=== PATIENT | female | born 1965 | race African-American/Black ===

== ENCOUNTER 2016-05-28 20:05 | Emergency (ER) | payer OTHER ==
[2016-05-28] MEDS ORDERED: SODIUM CHLORIDE 1,000 ML IV STA (20:08)
--- NOTE | 2016-05-28 20:08 | PDOC ---
History of Present Illness - History of Present Illness Initial Comments: 05/28/16 20:08 Patient is a 50 year old female with no significant medical hx who is presenting to the ED complaining of intermittent weakness. One week ago the patient had an episode of sudden weakness that relieved after taking some Tylenol. Last night her weakness returned with fever, chills, nausea and two episodes of vomiting. The patient also complains of abdominal discomfort. Patient works nights seven days a week and gets a day off once in a while. She often gets little sleep (about 3 hours). The patient recently had bariatric surgery and has been following the diet. She reports that she had low potassium levels after the surgery and has been taking potassium since. Denies increased urinary frequency, shortness of breath, or dizziness. PCP: Joe Perry MD <Sofy Yen - Last Filed: 05/28/16 20:38> <Gen Scott - Last Filed: 05/28/16 21:15> - General Chief Complaint: Weakness Stated Complaint: WEAKNESS Time Seen by Provider: 05/28/16 20:07 Past History <Sofy Yen - Last Filed: 05/28/16 20:38> <Gen Scott - Last Filed: 05/28/16 21:15> - Past Medical History Allergies/Adverse Reactions: Allergies Allergy/AdvReac Type Severity Reaction Status Date / Time No Known Allergies Allergy Verified 05/28/16 20:07 Home Medications: Ambulatory Orders Carvedilol [Coreg] 12.5 mg PO BID 05/28/16 Cephalexin [Keflex] 250 mg PO QID 3 Days 05/28/16 Simvastatin [Zocor -] 20 mg PO HS 05/28/16 Review of Systems - Review of Systems Comments:: 05/28/16 20:14 CONSTITUTIONAL: Present: fever, chills, generalized weakness Absent: diaphoresis, malaise, loss of appetite CARDIOVASCULAR: Absent: chest pain, syncope, palpitations, irregular heart rate, lightheadedness , peripheral edema RESPIRATORY: Absent: cough, shortness of breath, dyspnea with exertion, orthopnea, wheezing, stridor, hemoptysis GASTROINTESTINAL: Present: abdominal discomfort, nausea, vomiting Absent: abdominal distension, diarrhea, constipation, melena, hematochezia GENITOURINARY: Absent: dysuria, frequency, urgency, hesitancy, hematuria, flank pain, genital pain NEUROLOGIC: Absent: headache, focal weakness or paresthesia, dizziness, unsteady gait, seizure, mental status changes, bladder or bowel incontinence. <Sofy Yen - Last Filed: 05/28/16 20:38> - Review of Systems Able to Perform ROS?: Yes Is the patient limited Egyptian proficient: No Constitutional: Yes: Symptoms Reported, See HPI HEENTM: No: Symptoms Reported Respiratory: No: Symptoms reported Cardiac (ROS): No: Symptoms Reported ABD/GI: Yes: Symptoms Reported, See HPI : No: Symptoms Reported Musculoskeletal: Yes: Symptoms Reported, See HPI, Muscle Weakness Neurological: No: Symptoms reported All Other Systems: Reviewed and Negative <Gen Scott - Last Filed: 05/28/16 21:15> *Physical Exam - Physical Exam Comments: 05/28/16 20:15 Constitutional: The patient is in no apparent distress, speaking in full sentences, hemodynamically stable, non-orthostatic HEENT: Moist mucous membranes Cardiac/Respiratory: Lungs and heart are normal. Skin: Skin turgor is normal Neuro: Neurologically intact <Sofy Yen - Last Filed: 05/28/16 20:38> ED Treatment Course - LABORATORY CBC & Chemistry Diagram: 05/28/16 20:20 <Sofy Yen - Last Filed: 05/28/16 20:38> - LABORATORY CBC & Chemistry Diagram: 05/28/16 20:20 <Gen Scott - Last Filed: 05/28/16 21:15> *DC/Admit/Observation/Transfer - Attestations Scribe Attestion: 05/28/16 20:18 Documentation prepared by Sofy Yen, acting as senior medical technologist for Gne Scott MD. <Sofy Yen - Last Filed: 05/28/16 20:38> <Gen Scott - Last Filed: 05/28/16 21:15> Diagnosis at time of Disposition: Dehydration, Hypokalemia UTI (urinary tract infection) Qualifiers: Urinary tract infection type: acute cystitis Hematuria presence: without hematuria Qualified Code(s): N30.00 - Acute cystitis without hematuria - Discharge Dispostion Condition at time of disposition: Good - Prescriptions Prescriptions: Cephalexin [Keflex] 250 mg PO QID 3 Days - Patient Instructions Additional Instructions: CONTINUE MEDICATIONS PRESCRIBED REST PLENTY OF FLUIDS (WATER/PEDIALYTE) CALL YOUR DOCTOR ON MONDAY TAKE ANTIBIOTICS PRESCRIBED - Post Discharge Activity Work/School Note: Back to Work
[2016-05-28 20:31] VITALS: BP 113/67; PULSE 80; TEMP 97.7; BMI 29.8
[2016-05-28 20:43] LABS: PH,URINE 6.5 (4.5-8); URINE BILIRUBIN Negative (NEGATIVE); URINE BLOOD Negative (NEGATIVE); URINE GLUCOSE (UA) Negative (NEGATIVE); URINE KETONE Negative (NEGATIVE); URINE LEUK ESTERASE 1+ (NEGATIVE); URINE NITRITE Negative (NEGATIVE); URINE PROTEIN Negative (NEGATIVE); URINE UROBILINOGEN 2.0 E.U/dl (0.2-1.0)
[2016-05-28 20:44] LABS: CALCIUM 8.8 mg/dl (8.4-10.2); CREATININE 0.7 mg/dl (0.6-1.3)
[2016-05-28 20:44] LABS: URINE COLOR YELLOW
[2016-05-28 20:49] LABS: URINE APPEARANCE HAZY
[2016-05-28 20:50] LABS: URINE BACTERIA FEW /hpf (NEGATIVE)
[2016-05-28] MEDS ORDERED: CEPHALEXIN MONOHYDRATE 500 MG CAPSULE (UD) PO ONE (21:07)
[2016-05-28] MEDS ORDERED: POTASSIUM CHLORIDE TABS 20 MEQ TABLET.ER (FP) PO ONE ×2 (21:07→21:12)
[2016-05-28] MEDS ORDERED: CEPHALEXIN MONOHYDRATE 500 MG CAPSULE (UD) ONE (21:17)
== END 2016-05-28 21:53 | disposition home or self-care (01) ==
LOC: MERGE 20:05 → FER 20:05
PROC: 3E0337Z Introduction of Electrolytic and Water Balance Substance into Peripheral Vein, Percutaneous Approach (ICD-10-PCS; principal; 2016-05-28)
DX: E87.6 Hypokalemia (principal); E86.0 Dehydration
CPT/HCPCS: 36415; 80048; 81003; 81015; 99283-25

== ENCOUNTER 2016-06-22 05:21 | Day surgery (SDC) | payer OTHER ==
[2016-06-13 10:28] VITALS: BMI 28.6
[2016-06-22] MEDS ORDERED: DESFLURANE GAS 240 ML BOTTLE IH ONE (07:10)
[2016-06-22] MEDS ORDERED: DEXAMETHASONE SOD PHOSPHATE 4 MG/1 ML VIAL ONE (07:30)
[2016-06-22] MEDS ORDERED: SODIUM CHLORIDE 0.9% P/F 10 ML VIAL IJ ONE (07:30)
[2016-06-22] MEDS ORDERED: KETOROLAC TROMETHAMINE 30 MG/1 ML VIAL ONE (07:30)
[2016-06-22] MEDS ORDERED: ePHEDrine SULFATE 50 MG/1 ML AMPULE ONE (07:30)
[2016-06-22] MEDS ORDERED: ceFAZolin SODIUM 1 GM VIAL ONE (07:30)
[2016-06-22] MEDS ORDERED: MIDAZOLAM HCL 2 MG/2 ML SINGLE DOSE VIAL ONE (07:31)
[2016-06-22] MEDS ORDERED: PROPOFOL 20 ML ONE ×2 (07:31)
[2016-06-22] MEDS ORDERED: BUPIVACAINE HCL/PF 0.5% (5MG/ML) 10 ML VIAL ONE (07:39)
[2016-06-22] MEDS ORDERED: LIDOCAINE HCL 1%, 10 MG/ML (20ML VIAL) ONE (07:39)
[2016-06-22] MEDS ORDERED: LIDOCAINE HCL 1%, 10 MG/ML (20ML VIAL) IJ ONE ×2 (07:50)
[2016-06-22] MEDS ORDERED: BUPIVACAINE HCL/PF 0.5% (5MG/ML) 10 ML VIAL IJ ONE ×2 (07:51)
--- NOTE | 2016-06-22 08:35 | HP ---
Satellite H - Chief Complaint Chief Complaint: right hand pain/numbness - Past Medical History Allergies/Adverse Reactions: Allergies Allergy/AdvReac Type Severity Reaction Status Date / Time banana Allergy Severe RASH,THROAT Verified 06/22/16 07:06 CLOSING chloroquine Allergy "TURN RED" Verified 06/22/16 07:06 ...LMP: 06/05/01 ...LMP Comment: POSTMENOPAUSAL X 15 YEARS - Current Medications Current Medications: Medication Instructions Recorded Losartan/Hydrochlorothiazide 1 each PO DAILY 02/22/13 [Losartan-Hctz 100-25 mg Tablet] Simvastatin [Zocor -] 10 mg PO HS 02/22/13 Potassium Chloride [K-Dur -] 20 meq PO DAILY 09/23/15 Carvedilol [Coreg] 12.5 mg PO BID 05/28/16 Omeprazole 10 mg PO DAILY 06/13/16 Hydrocodone/Acetaminophen [Collins 1 - 2 each PO Q6H #50 tablet MDD 8 06/22/16 5-325 Tablet] Satellite Physical Exam - Physical Examination Vital Signs: Vital Signs Period Temp Pulse Resp BP Sys/Harden Pulse Ox Last 24 Hr 97.9 F 77 20 141/90 100 General Appearance: Well Nourished, Well Developed, Alert & Oriented x3 ENT: Clear Lung: Normal air movement Heart: Regular rate & rhythm Extremities: Other (right hand- + tinels, + phalens EMG + cts) Neurological: Intact, Alert, Oriented Satellite Impression/Plan - Impression/Plan Impression: right cts Operative Procedure: right ctr Date to be Performed: 06/22/16
--- NOTE | 2016-06-22 09:01 | OP ---
Operative Note - Note: Operative Date: 06/22/16 Pre-Operative Diagnosis: right CTS Operation: right CTR, tenosynovectomy Post-Operative Diagnosis: Same as Pre-op Surgeon: Fortino Martínez Anesthesiologist/[facility] [employer]: Akil Clark Jr. Anesthesia: General, Local Specimens Removed: tenosynovium Estimated Blood Loss (mls): 0 Blood Volume Replaced (mls): 0 Fluid Volume Replaced (mls): 500 Operative Report Dictated: Yes
[2016-06-22] MEDS ORDERED: oxyCODONE HCL 5 MG TABLET PO PRN (09:04)
[2016-06-22] MEDS ORDERED: ONDANSETRON 4 MG/2 ML VIAL IVPUSH PRN (09:04)
[2016-06-22] MEDS ORDERED: LACTATED RINGERS SOLUTION 1,000 ML IV SCH (09:15)
--- NOTE | 2016-06-22 09:21 | SPEC ---
DATE OF OPERATION: PREOPERATIVE DIAGNOSIS: Right carpal tunnel syndrome. POSTOPERATIVE DIAGNOSIS: Right carpal tunnel syndrome. PROCEDURE: Right carpal tunnel release and tenosynovectomy. SURGEON: Fortino Martínez MD METAL RIVET MACHINE OPERATOR: None. ANESTHESIOLOGIST: Akil Clark CRNA BLOOD LOSS: None. BLOOD GIVEN: None. FLUID REPLACEMENT: 500 mL. DRAINS: None. COMPLICATIONS: None. SPECIMEN: Tenosynovium, right wrist. This patient is a 50-year-old female with a preoperative diagnosis of right carpal tunnel syndrome. After understanding the potential risks, complications, alternatives, and benefits of surgical versus nonsurgical treatment, the patient elected to undergo this procedure. She understands she may not get complete relief of her symptoms, including continuation of her numbness. DESCRIPTION OF PROCEDURE: The patient was brought to the operating room, peripheral IV placed and intravenous sedation was given. One gram of intravenous Ancef was given. MAC anesthesia was induced. A tourniquet was applied to the right upper arm and the right upper extremity was prepped and draped in sterile fashion. The entire case was done under 3.8 loupe magnification. A marking pen was utilized to yasmin out a longitudinal incision in an already existing skin crease. Twenty mL of 0.5% Marcaine mixed with 1% Lidocaine was injected in and around the surgical incision. The right upper extremity was elevated, exsanguinated with an Esmarch bandage and the tourniquet inflated to 250 mmHg. A No. 15 scalpel blade was utilized to cut down through the skin. Subcutaneous hemostasis was achieved with the bipolar cautery. Dissection was done through the superficial palmar fascia. Self-retaining retractors were placed into the wound. Under direct visualization, the transverse carpal ligament was transected with a No. 15 scalpel blade, exposing the median nerve and the contents of the carpal tunnel. The distal and proximal extents of the release were completed with a Littler scissor and checked with irrigation and my small finger. They were seen to be complete. Limited dissection was done on the radial side of the median nerve and more extensive dissection was done on the ulnar side of the median nerve. The patients nerve was seen to be quite compressed by epineurium and therefore a limited epineurotomy was performed. A Ragnell retractor was used to gently retract the median nerve in a radial direction. The patient had a lot of tenosynovitis and therefore a tenosynovectomy was performed off all 9 flexor tendons. This was passed off the field as tenosynovium right wrist. The floor of the carpal tunnel was checked. There were no abnormal masses or ganglion cysts. The area was copiously irrigated and washed out and closure begun. Undyed 4-0 Vicryl was used to close the deep dermal layer. Final skin reapproximation was done with horizontal mattress 4-0 nylon sutures. The area was then washed and dried, covered with Xeroform, 4x4s, fluffs between the fingers, Webril and a 4-inch plaster roll was utilized to make a volar splint, which was then wrapped with Ladi and Coban. The tourniquet was taken down after a total tourniquet time of 15 minutes. There were no complications during the case. The patient tolerated the procedure well and was brought to the ambulatory recovery room in stable condition. Becca [id number]
[2016-06-22 09:50] VITALS: TEMP 97.8
[2016-06-22 12:27] VITALS: BP 132/83; PULSE 68
--- NOTE | 2016-06-23 17:38 | PATH ---
Surgical Pathology Report Patient Name: EDITH MAO [facility]. Rec. #: [id number] /Age/Gender: 1965 (Age: 50) / F Account: [id number] Location: [facility] SURGICAL Taken: 06/22/2016 Received: 06/22/2016 Reported: 06/23/2016 Physicians: Fortino Martínez M.D. Specimen(s) Received TENOSYNOVIUM TISSUE RIGHT WRIST Clinical History Right carpal tunnel syndrome Final Diagnosis SOFT TISSUE, RIGHT WRIST, TENOSYNOVIUM, CARPAL TUNNEL RELEASE: BENIGN TENOSYNOVIAL FIBROCONNECTIVE TISSUE WITH MYXOID DEGENERATION. Electronically Signed Mesfin Reyes M.D. Gross Description Received in formalin, labeled "tenosynovium right wrist" is a 2.2 x 1.5 x 0.3 cm aggregate of multiple leonardo-yellow, irregular portions of soft tissue, consistent with tenosynovium. The specimen is submitted in toto in one cassette. 06/22/201606/22/2016
== END 2016-06-22 11:45 | disposition home or self-care (01) ==
LOC: JASU-SURG 05:21 → MERGE 11:00 → JASU-SURG 11:45
PROVIDERS: ATTEND Orthopaedic Surgery
PROC: 0LB50ZZ Excision of Right Lower Arm and Wrist Tendon, Open Approach (ICD-10-PCS; 2016-06-22)
PROC: 01N50ZZ Release Median Nerve, Open Approach (ICD-10-PCS; principal; 2016-06-22 08:00)
DX: G56.01 Carpal tunnel syndrome, right upper limb (principal); M65.831 Other synovitis and tenosynovitis, right forearm
CPT/HCPCS: 88304-TC; 94760

== ENCOUNTER 2017-06-15 09:11 | Emergency (ER) | payer OTHER ==
[2017-06-15 09:24] VITALS: BP 122/76; PULSE 92; TEMP 98.5; BMI 29.1
[2017-06-15] MEDS ORDERED: KETOROLAC TROMETHAMINE 30 MG/1 ML VIAL ONE (09:50)
[2017-06-15] MEDS ORDERED: KETOROLAC TROMETHAMINE 30 MG/1 ML VIAL IVPUSH ONE (09:50)
[2017-06-15] MEDS ORDERED: SODIUM CHLORIDE 1,000 ML IV STA (09:50)
[2017-06-15 10:47] LABS: HEMOGLOBIN 12.6 GM/dl (10.7-15.3)
[2017-06-15 11:06] LABS: MCH 32.2 pg (25.7-33.7); MCHC 34.1 g/dl (32.0-36.0); MEAN CELL VOLUME 94.2 fl (80-96); MEAN PLT VOLUME 9.4 fl (7.5-11.1); PLATELET COUNT 201 K/MM3 (134-434); RBC 3.93 M/mm3 (3.60-5.2); RDW 12.8 % (11.6-15.6); WHITE BLOOD COUNT 2.8 K/mm3 (4.0-10.8)
[2017-06-15 11:07] LABS: ALBUMIN 3.3 g/dl (3.5-5.0); ALK PHOS 70 U/L (32-92); ANION GAP 6 (8-16); BILIRUBIN,TOTAL 0.5 mg/dl (0.2-1.0); BLOOD UREA NITROGEN 16 mg/dl (7-18); CALCIUM 8.7 mg/dl (8.4-10.2); CHLORIDE 98 mmol/L (98-107); CO2 32 mmol/L (22-28); CREATININE 0.9 mg/dl (0.6-1.3); GLUCOSE,RANDOM 113 mg/dl (74-106); POTASSIUM 3.1 mmol/L (3.5-5.1); SGOT/AST 28 U/L (10-42); SGPT/ALT 23 U/L (10-40); SODIUM 136 mmol/L (136-145); TOT PROT 6.4 g/dl (6.4-8.3)
[2017-06-15] MEDS ORDERED: POTASSIUM CHLORIDE TABS 20 MEQ TABLET.ER (FP) PO ONE ×2 (11:26→11:29)
[2017-06-15 12:02] LABS: PLATELET ESTIMATE ADEQUATE
--- NOTE | 2017-06-15 12:29 | PDOC ---
History of Present Illness - General Chief Complaint: Respiratory Stated Complaint: BODY ACHES Time Seen by Provider: 06/15/17 09:17 History Source: Patient Exam Limitations: No Limitations - History of Present Illness Initial Comments: 06/15/17 12:20 CHIEF COMPLAINT: 51-year-old female presents with feeling feverish with body aches for 2 weeks, now with worsening myalgias. HISTORY OF PRESENT ILLNESS: Patient has been ill for about 2 weeks with generalized aches, she had a cough initially which then resolved. She has been in contact with multiple people with similar illness. She thought she was getting better but yesterday she developed severe myalgias throughout her body. She denies any headache, sore throat, cough, dysuria, or rash. She just feels achy all over, worse in the shoulders and the thighs. REVIEW OF SYSTEMS: GENERAL/CONSTITUTIONAL: Positive subjective fever, positive chills. Positive diffuse body aches. Positive decreased appetite. HEAD, EYES, EARS, NOSE AND THROAT: No change in vision. No ear pain or discharge. No sore throat. CARDIOVASCULAR: No chest pain or shortness of breath. RESPIRATORY: No cough, wheezing, or hemoptysis. GASTROINTESTINAL: No nausea, vomiting, diarrhea or constipation. No rectal bleeding. GENITOURINARY: No dysuria, frequency, or change in urination. MUSCULOSKELETAL: Positive diffuse muscle aches. SKIN AND BREASTS: No rash or easy bruising. NEUROLOGIC: No headache, vertigo, loss of consciousness, or loss of sensation. PSYCHIATRIC: No depression or anxiety. ENDOCRINE: Positive increased thirst. No abnormal weight change. HEMATOLOGIC/LYMPHATIC: No anemia, easy bleeding, or history of blood clots. ALLERGIC/IMMUNOLOGIC: No hives or skin allergy. No latex allergy. Past History - Past Medical History Allergies/Adverse Reactions: Allergies Allergy/AdvReac Type Severity Reaction Status Date / Time banana Allergy Severe RASH,THROAT Verified 06/15/17 10:09 CLOSING chloroquine Allergy "TURN RED" Verified 06/15/17 10:09 CHLORAQUIN Allergy Uncoded 06/15/17 10:09 Home Medications: Ambulatory Orders Losartan/Hydrochlorothiazide [Losartan-Hctz 100-25 mg Tablet] 1 each PO DAILY Simvastatin [Zocor -] 10 mg PO HS 02/22/13 Potassium Chloride [K-Dur -] 20 meq PO DAILY 09/23/15 Carvedilol [Coreg] 12.5 mg PO BID 05/28/16 Omeprazole 10 mg PO DAILY 06/13/16 Nabumetone 500 mg PO BID PRN #14 tablet 06/15/17 Anemia: No Asthma: No Cancer: No Cardiac Disorders: No CVA: No COPD: No CHF: No Dementia: No Diabetes: Yes (DIET CONTROLLED) GI Disorders: No Disorders: No HTN: Yes Hypercholesterolemia: Yes Liver Disease: No Seizures: No Thyroid Disease: No - Surgical History Abdominal Surgery: Yes (gastric sleeve) Gastric Stapling: Yes (GASTRIC SLEEVE) GI Surgery: Yes Orthopedic Surgery: Yes (LEFT CARPAL TUNNEL 2016) - Immunization History Immunization Up to Date: No - Suicide/Smoking/Psychosocial Hx Smoking Status: No Smoking History: Never smoked Have you smoked in the past 12 months: No Number of Cigarettes Smoked Daily: 0 Hx Alcohol Use: No Drug/Substance Use Hx: No Substance Use Type: None Hx Substance Use Treatment: No *Physical Exam - Vital Signs Last Vital Signs Temp Pulse Resp BP Pulse Ox 98.5 F 92 H 15 122/76 97 06/15/17 09:14 06/15/17 09:14 06/15/17 09:14 06/15/17 09:14 06/15/17 09:14 - Physical Exam Comments: 06/15/17 12:29 GENERAL: The patient is awake, alert, and fully oriented, in no acute distress. She has body aches when changing position on the stretcher, discomfort with movement. HEAD: Normal with no signs of trauma. EYES: Pupils equal, round and reactive to light, extraocular movements intact, sclera anicteric, conjunctiva clear. ENT: Ears normal, nares patent, oropharynx clear without exudates. Moist mucous membranes. NECK: Normal range of motion, supple without lymphadenopathy, JVD, or masses. LUNGS: Breath sounds equal, clear to auscultation bilaterally. No wheezes, and no crackles. HEART: Regular rate and rhythm, normal S1 and S2 without murmur, rub or gallop. ABDOMEN: Soft, nontender, normoactive bowel sounds. No guarding, no rebound. No masses. EXTREMITIES: Normal range of motion, no edema. No clubbing or cyanosis. No cords, erythema, or tenderness. NEUROLOGICAL: Cranial nerves II through XII grossly intact. Normal speech, normal gait. PSYCH: Normal mood, normal affect. SKIN: Warm, Dry, normal turgor, no rashes or lesions noted. ED Treatment Course - LABORATORY CBC & Chemistry Diagram: 06/15/17 10:00 06/15/17 10:00 - ADDITIONAL ORDERS Additional order review: Laboratory Results 06/15/17 10:00 Sodium 136 Potassium 3.1 L Chloride 98 Carbon Dioxide 32 H Anion Gap 6 L BUN 16 Creatinine 0.9 D Creat Clearance w eGFR > 60 Random Glucose 113 H Calcium 8.7 Total Bilirubin 0.5 D AST 28 ALT 23 Alkaline Phosphatase 70 D Total Protein 6.4 Albumin 3.3 L 06/15/17 10:00 RBC 3.93 MCV 94.2 MCHC 34.1 RDW 12.8 MPV 9.4 Neutrophils % No Result Required. Lymphocytes % No Result Required. - Medications Given in the ED: ED Medications Discontinued Medications Generic Name Dose Route Start Last Admin Trade Name Freq PRN Reason Stop Dose Admin Sodium Chloride 1,000 mls @ 1,000 mls/hr 06/15/17 09:50 06/15/17 10:00 Normal Saline - IV 06/15/17 10:49 1,000 mls/hr ASDIR STA Administration Ketorolac Tromethamine 30 mg 06/15/17 09:50 06/15/17 10:00 Toradol Injection - IVPUSH 06/15/17 09:51 30 mg ONCE ONE Administration Potassium Chloride 20 meq 06/15/17 11:26 06/15/17 11:30 K-Dur - PO 06/15/17 11:27 20 meq ONCE ONE Administration Medical Decision Making - Medical Decision Making 06/15/17 12:29 Patient with viral symptoms and influenza-like illness over the last 2 weeks, now worse for the last 24 hours. No focal symptoms of pneumonia, urinary tract infection, meningitis, abdominal infection or cellulitis. Primary symptom is just diffuse body aches. On examination, there are no abnormal findings other than body aches. Laboratory studies reviewed: Laboratory Results - last 24 hr 06/15/17 06/15/17 10:00 10:00 WBC 2.8 L D RBC 3.93 Hgb 12.6 Hct 37.0 MCV 94.2 MCH 32.2 MCHC 34.1 RDW 12.8 Plt Count 201 MPV 9.4 Neutrophils % No Result Required. Neutrophils % (Manual) 59.0 Band Neutrophils % 3.0 Lymphocytes % No Result Required. Lymphocytes % (Manual) 15.0 Monocytes % (Manual) 23 H* Platelet Estimate Adequate Platelet Comment Sodium 136 Potassium 3.1 L Chloride 98 Carbon Dioxide 32 H Anion Gap 6 L BUN 16 Creatinine 0.9 D Creat Clearance w eGFR > 60 Random Glucose 113 H Calcium 8.7 Total Bilirubin 0.5 D AST 28 ALT 23 Alkaline Phosphatase 70 D Total Protein 6.4 Albumin 3.3 L White blood cell count is a bit low, but she does run low in the past, previously 3-5 for her typical white blood cell count. Today is just a bit lower. Differential shows normal neutrophils. Monocytes are increased. These findings are suggestive of a viral type infection. Chemistries are unremarkable other than mild hypokalemia which has been repleted. Albumin is 3.3, consistent with prior history of gastric sleeve procedure for weight loss. Given the two-week duration, the absence of fever, the absence of cough, and the only finding of myalgias, patient will be treated with nabumetone twice daily for symptomatic relief. She is stable for discharge. *DC/Admit/Observation/Transfer Diagnosis at time of Disposition: Viral syndrome, Myalgia - Discharge Dispostion Disposition: HOME Condition at time of disposition: Stable Admit: No - Prescriptions Prescriptions: Nabumetone 500 mg PO BID PRN #14 tablet PRN Reason: aches pain or fever - Referrals Referrals: Joe Perry MD [Primary Care Provider] - - Patient Instructions Printed Discharge Instructions: DI for Viral Syndrome Additional Instructions: You were evaluated today for body aches. The likely cause is a viral infection. Take plenty of fluids and rest at home. Take nabumetone 500 mg twice a day with food to relieve the body aches and pain. Follow-up with your primary care physician. Return to the emergency department for any severe or progressive symptoms. - Post Discharge Activity Forms/Work/School Notes: Back to Work
== END 2017-06-15 12:42 | disposition home or self-care (01) ==
LOC: FER 09:11
PROC: 3E0333Z Introduction of Anti-inflammatory into Peripheral Vein, Percutaneous Approach (ICD-10-PCS; principal; 2017-06-15)
PROC: 3E0337Z Introduction of Electrolytic and Water Balance Substance into Peripheral Vein, Percutaneous Approach (ICD-10-PCS; 2017-06-15)
DX: B34.9 Viral infection, unspecified (principal); M79.1 Myalgia; I10 Essential (primary) hypertension; E78.00 Pure hypercholesterolemia, unspecified; Z98.84 Bariatric surgery status
CPT/HCPCS: 36415; 80053; 85025; 99283-25

== ENCOUNTER 2017-08-13 18:39 | Emergency (ER) | payer OTHER ==
[2017-08-13 18:51] VITALS: BP 116/80; PULSE 80; TEMP 98.3; BMI 28.3
--- NOTE | 2017-08-13 19:02 | PDOC ---
History of Present Illness - General History Source: Patient Exam Limitations: No Limitations - History of Present Illness Initial Comments: 08/13/17 19:34 The patient is a 51 year old female, with no significant past medical history, who presents to the emergency department with, a bite to the left index finger. As per patient, she was bit by a wild mouse. The patient is unaware if her tetanus is up to date. She denies any pain to the area. She denies recent fevers, chills, headache or dizziness. She denies recent nausea, vomit, diarrhea or constipation. She denies recent dysuria, frequency, urgency or hematuria. She denies recent chest pain or shortness of breath. Past surgical history: None reported. Social history: Nonsmoker. Denies EtOH use and recreational drug use. <Tino Blanchard - Last Filed: 08/13/17 19:51> <Rosales Bolden - Last Filed: 08/14/17 06:31> - General Chief Complaint: Bite Stated Complaint: PT STATES SHE WAS BITTEN BY A MOUSE ON LEFT INDEX Time Seen by Provider: 08/13/17 19:02 Past History <Tino Blanchard - Last Filed: 08/13/17 19:51> - Past Medical History Anemia: No Asthma: No Cancer: No Cardiac Disorders: No CVA: No COPD: No CHF: No Dementia: No Diabetes: Yes (DIET CONTROLLED) GI Disorders: No Disorders: No HTN: Yes Hypercholesterolemia: Yes Liver Disease: No Seizures: No Thyroid Disease: No - Surgical History Abdominal Surgery: Yes (gastric sleeve) Gastric Stapling: Yes (GASTRIC SLEEVE) GI Surgery: Yes Orthopedic Surgery: Yes (LEFT CARPAL TUNNEL 2016) - Immunization History Immunization Up to Date: No - Suicide/Smoking/Psychosocial Hx Smoking Status: No Smoking History: Never smoked Have you smoked in the past 12 months: No Number of Cigarettes Smoked Daily: 0 Information on smoking cessation initiated: No Hx Alcohol Use: No Drug/Substance Use Hx: No Substance Use Type: None Hx Substance Use Treatment: No <Rosales Bolden - Last Filed: 08/14/17 06:31> - Past Medical History Allergies/Adverse Reactions: Allergies Allergy/AdvReac Type Severity Reaction Status Date / Time banana Allergy Severe RASH,THROAT Verified 08/13/17 18:40 CLOSING chloroquine Allergy "TURN RED" Verified 08/13/17 18:40 Home Medications: Ambulatory Orders Losartan/Hydrochlorothiazide [Losartan-Hctz 100-25 mg Tablet] 1 each PO DAILY Simvastatin [Zocor -] 10 mg PO DAILY 02/22/13 Potassium Chloride [K-Dur -] 20 meq PO DAILY 09/23/15 Carvedilol [Coreg] 12.5 mg PO BID 05/28/16 Omeprazole 10 mg PO DAILY 06/13/16 Nabumetone 500 mg PO BID PRN #14 tablet 06/15/17 Review of Systems - Review of Systems Able to Perform ROS?: Yes Comments:: 08/13/17 19:34 GENERAL/CONSTITUTIONAL: No fever or chills. No weakness. HEAD, EYES, EARS, NOSE AND THROAT: No change in vision. No ear pain or discharge. No sore throat. CARDIOVASCULAR: No chest pain or shortness of breath. RESPIRATORY: No cough, wheezing, or hemoptysis. GASTROINTESTINAL: No nausea, vomiting, diarrhea or constipation. GENITOURINARY: No dysuria, frequency, or change in urination. MUSCULOSKELETAL: No joint or muscle swelling or pain. No neck or back pain. SKIN: +Bite to left index finger. No rash NEUROLOGIC: No headache, vertigo, loss of consciousness, or change in strength/ sensation. ENDOCRINE: No increased thirst. No abnormal weight change. HEMATOLOGIC/LYMPHATIC: No anemia, easy bleeding, or history of blood clots. ALLERGIC/IMMUNOLOGIC: No hives or skin allergy. All Other Systems: Reviewed and Negative <Tino Blanchard - Last Filed: 08/13/17 19:51> *Physical Exam - Vital Signs Last Vital Signs Temp Pulse Resp BP Pulse Ox 98.3 F 80 16 116/80 100 08/13/17 18:40 08/13/17 18:40 08/13/17 18:40 08/13/17 18:40 08/13/17 18:40 - Physical Exam Comments: 08/13/17 19:52 GENERAL: Awake, alert, and fully oriented, in no acute distress HEAD: No signs of trauma EYES: PERRLA, EOMI, sclera anicteric, conjunctiva clear ENT: Auricles normal inspection, hearing grossly normal, nares patent, oropharynx clear without exudates. Moist mucosa NECK: Normal ROM, supple, no lymphadenopathy, JVD, or masses LUNGS: Breath sounds equal, clear to auscultation bilaterally. No wheezes, and no crackles HEART: Regular rate and rhythm, normal S1 and S2, no murmurs, rubs or gallops ABDOMEN: Soft, nontender, normoactive bowel sounds. No guarding, no rebound. No masses EXTREMITIES: Normal range of motion, no edema. No clubbing or cyanosis. No cords, erythema, or tenderness NEUROLOGICAL: Cranial nerves II through XII grossly intact. Normal speech, normal gait SKIN: +Puncture wound to left index finger. Warm, Dry, normal turgor, no rashes noted. <Tino Blanchard - Last Filed: 08/13/17 19:51> - Vital Signs Last Vital Signs Temp Pulse Resp BP Pulse Ox 98.3 F 80 16 116/80 100 08/13/17 18:40 08/13/17 18:40 08/13/17 18:40 08/13/17 18:40 08/13/17 18:40 <Rosales Bolden - Last Filed: 08/14/17 06:31> ED Treatment Course - Medications Given in the ED: ED Medications Discontinued Medications Generic Name Dose Route Start Last Admin Trade Name Freq PRN Reason Stop Dose Admin Diphtheria/Tetanus/Acell Pertussis 0.5 ml 08/13/17 19:04 08/13/17 19:11 Boostrix - IM 08/13/17 19:05 0.5 ml .ONCE ONE Administration <Tino Blanchard - Last Filed: 08/13/17 19:51> Medical Decision Making - Medical Decision Making 08/14/17 06:30 mouse bite tetanus local wound care <Rosales Bolden - Last Filed: 08/14/17 06:31> *DC/Admit/Observation/Transfer - Attestations Scribe Attestion: 08/13/17 19:35 Documentation prepared by Tino Blanchard, acting as emergency medical technician/driver for Rosales Bolden MD. <Tino Blanchard - Last Filed: 08/13/17 19:51> <Rosales Bolden - Last Filed: 08/14/17 06:31> Diagnosis at time of Disposition: Animal bite - Discharge Dispostion Disposition: HOME Condition at time of disposition: Stable - Patient Instructions Printed Discharge Instructions: DI for Animal Bites
[2017-08-13] MEDS ORDERED: DIPHTH,PERTUSS(ACELL),TET 0.5 ML DISP.SYRIN IM ONE (19:04)
== END 2017-08-13 19:12 | disposition home or self-care (01) ==
LOC: FER 18:39
PROC: 3E0234Z Introduction of Serum, Toxoid and Vaccine into Muscle, Percutaneous Approach (ICD-10-PCS; principal; 2017-08-13)
DX: S61.251A Open bite of left index finger without damage to nail, initial encounter (principal); W53.01XA Bitten by mouse, initial encounter; Y93.89 Activity, other specified; Y92.9 Unspecified place or not applicable; Z98.84 Bariatric surgery status; I10 Essential (primary) hypertension; E78.00 Pure hypercholesterolemia, unspecified; R73.03 Prediabetes
CPT/HCPCS: 90715; 99281-25

== ENCOUNTER 2017-09-29 17:40 | Emergency (ER) | payer OTHER ==
[2017-09-29 18:10] VITALS: BP 123/65; PULSE 91; TEMP 97.5; BMI 29.0
--- NOTE | 2017-09-29 18:10 | PDOC ---
History of Present Illness - History of Present Illness Initial Comments: 09/29/17 18:20 Ms. Bernal is a 52 yo female w/ pmh of HLD, HTN, DM, gastric sleeve in 2012 who presents complaining of 3 month history of bilateral leg pain. She reports this happens up to 3 times per day and that she cannot move her knees or ankles when it happens. The pain is from her knees down on either side. She rates the pain as 8/10 and describes it as a burning sensation that occasionally makes her cry from intensity. Ms. Bernal also reports bilateral chest pain when these episodes occur. The patient denies chest pain, shortness of breath, headache and dizziness. Denies fever, chills, nausea, vomit, diarrhea and constipation. Denies dysuria, frequency, urgency and hematuria. Allergies: Chloroquine <Fercho Courtney - Last Filed: 09/29/17 18:52> <Rosales Bolden - Last Filed: 09/29/17 20:11> - General Chief Complaint: Pain Stated Complaint: LOUANN LEG, CHEST PAIN X 2 MOS Time Seen by Provider: 09/29/17 17:50 Past History - Past Medical History Anemia: No Asthma: No Cancer: No Cardiac Disorders: No CVA: No COPD: No CHF: No Dementia: No Diabetes: Yes (DIET CONTROLLED) GI Disorders: No Disorders: No HTN: Yes Hypercholesterolemia: Yes Liver Disease: No Seizures: No Thyroid Disease: No - Surgical History Abdominal Surgery: Yes (gastric sleeve) Gastric Stapling: Yes (GASTRIC SLEEVE) GI Surgery: Yes Orthopedic Surgery: Yes (LEFT CARPAL TUNNEL 2016) - Immunization History Immunization Up to Date: No - Suicide/Smoking/Psychosocial Hx Smoking Status: No Smoking History: Never smoked Have you smoked in the past 12 months: No Number of Cigarettes Smoked Daily: 0 Information on smoking cessation initiated: No Hx Alcohol Use: No Drug/Substance Use Hx: No Substance Use Type: None Hx Substance Use Treatment: No <Fercho Courtney - Last Filed: 09/29/17 18:52> <Rosales Bolden - Last Filed: 09/29/17 20:11> - Past Medical History Allergies/Adverse Reactions: Allergies Allergy/AdvReac Type Severity Reaction Status Date / Time banana Allergy Severe RASH,THROAT Verified 09/29/17 17:42 CLOSING chloroquine Allergy "TURN RED" Verified 09/29/17 17:42 Home Medications: Ambulatory Orders Losartan/Hydrochlorothiazide [Losartan-Hctz 100-25 mg Tablet] 1 each PO DAILY Simvastatin [Zocor -] 10 mg PO DAILY 02/22/13 Potassium Chloride [K-Dur -] 10 meq PO DAILY 09/23/15 Carvedilol [Coreg] 12.5 mg PO BID 05/28/16 Review of Systems - Review of Systems Comments:: 09/29/17 18:27 GENERAL/CONSTITUTIONAL: No fever or chills. No weakness. HEAD, EYES, EARS, NOSE AND THROAT: No change in vision. No ear pain or discharge. No sore throat. CARDIOVASCULAR: +Chest pain as described. No shortness of breath RESPIRATORY: No cough, wheezing, or hemoptysis. GASTROINTESTINAL: No nausea, vomiting, diarrhea or constipation. GENITOURINARY: No dysuria, frequency, or change in urination. MUSCULOSKELETAL: +Bilateral leg pain as described SKIN: No rash NEUROLOGIC: No headache, vertigo, loss of consciousness, or change in strength/ sensation. ENDOCRINE: No increased thirst. No abnormal weight change HEMATOLOGIC/LYMPHATIC: No anemia, easy bleeding, or history of blood clots. ALLERGIC/IMMUNOLOGIC: No hives or skin allergy. <Fercho Courtney - Last Filed: 09/29/17 18:52> *Physical Exam - Vital Signs Last Vital Signs Temp Pulse Resp BP Pulse Ox 97.5 F L 91 H 18 123/65 100 09/29/17 17:40 09/29/17 17:40 09/29/17 17:40 09/29/17 17:40 09/29/17 17:40 - Physical Exam Comments: 09/29/17 18:30 GENERAL: Awake, alert, and fully oriented, in no acute distress HEAD: No signs of trauma, normocephalic, atraumatic EYES: PERRLA, EOMI, sclera anicteric, conjunctiva clear ENT: Auricles normal inspection, hearing grossly normal, nares patent, oropharynx clear without exudates. Moist mucosa NECK: Normal ROM, supple, no lymphadenopathy, JVD, or masses LUNGS: No distress, speaks full sentences, clear to auscultation bilaterally HEART: Regular rate and rhythm, normal S1 and S2, no murmurs, rubs or gallops, peripheral pulses normal and equal bilaterally. ABDOMEN: Soft, nontender, normoactive bowel sounds. No guarding, no rebound. No masses EXTREMITIES: Normal inspection, Normal range of motion, no edema. No clubbing or cyanosis. NEUROLOGICAL: Cranial nerves II through XII grossly intact. Normal speech, normal gait, no focal sensorimotor deficits SKIN: Warm, Dry, normal turgor, no rashes or lesions noted. <Fercho Courtney - Last Filed: 09/29/17 18:52> - Vital Signs Last Vital Signs Temp Pulse Resp BP Pulse Ox 97.5 F L 91 H 18 123/65 100 09/29/17 17:40 09/29/17 17:40 09/29/17 17:40 09/29/17 17:40 09/29/17 17:40 <Rosales Bolden - Last Filed: 09/29/17 20:11> ED Treatment Course - LABORATORY CBC & Chemistry Diagram: 09/29/17 18:30 09/29/17 18:30 <Fercho Courtney - Last Filed: 09/29/17 18:52> - LABORATORY CBC & Chemistry Diagram: 09/29/17 18:30 09/29/17 18:30 - ADDITIONAL ORDERS Additional order review: Laboratory Results 09/29/17 09/29/17 18:30 18:30 Sodium 136 Potassium 3.5 Chloride 99 Carbon Dioxide 30 H Anion Gap 7 L BUN 16 Creatinine < 0.8 Creat Clearance w eGFR > 60 Random Glucose 95 Calcium 9.1 Total Bilirubin 0.6 AST 30 ALT 29 D Alkaline Phosphatase 86 D Troponin I < 0.03 Total Protein 6.9 Albumin 3.6 09/29/17 18:30 RBC 4.04 MCV 94.4 MCHC 34.6 RDW 12.6 MPV 8.1 Neutrophils % 56.8 Lymphocytes % 25.9 Monocytes % 11.8 H Eosinophils % 1.6 Basophils % 3.9 H - Medications Given in the ED: ED Medications Discontinued Medications Generic Name Dose Route Start Last Admin Trade Name Freq PRN Reason Stop Dose Admin Potassium Chloride 40 meq 09/29/17 19:36 09/29/17 19:40 Potassium Chloride Oral Liquid PO 09/29/17 19:37 40 meq ONCE ONE Administration <Rosales Bolden - Last Filed: 09/29/17 20:11> Medical Decision Making - Medical Decision Making 09/29/17 18:31 Ms. Bernal is a 52 yo female w/ pmh as described who presents for evaluation of bilateral leg pain. Bilateral US ordered for DVT rule out. CBC/CMP to evaluate for infectious or electrolyte abnormality etiologies. EKG / troponin ordered for evaluation chest pain. 09/29/17 18:52 Patient signed out to oncoming team for further care. <Fercho Courtney - Last Filed: 09/29/17 18:52> *DC/Admit/Observation/Transfer <Fercho Courtney - Last Filed: 09/29/17 18:52> <Rosales Bolden - Last Filed: 09/29/17 20:11> Diagnosis at time of Disposition: Hypokalemia Leg pain Qualifiers: Laterality: bilateral Qualified Code(s): M79.604 - Pain in right leg - Discharge Dispostion Disposition: HOME Condition at time of disposition: Stable - Referrals Referrals: Joe Perry MD [Primary Care Provider] - - Patient Instructions Printed Discharge Instructions: DI for Hypokalemia - Post Discharge Activity
--- NOTE | 2017-09-29 18:12 | PDOC ---
Attending Attestation - Resident Resident Name: Fercho Courtney - ED Attending Attestation I have performed the following: I have examined & evaluated the patient, The case was reviewed & discussed with the resident, I agree w/resident's findings & plan, Exceptions are as noted - HPI HPI: 09/29/17 18:40 This is a 52-year-old female with a history of hypertension, hyperlipidemia, prior history of diabetes, status post gastric sleeve. She presents emergency department with a complaint of bilateral leg cramping pain. Symptoms have been present for the past 2 months up proximally. They're intermittent. 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 Mostly the present while laying flat in bed. She has noted no swelling. No fever. No rash. When she has this leg cramp, she notes intermittent sharp stabbing chest pain. This pain is present only when she has a leg cramp. No recent travel - Physicial Exam PE: 09/29/17 18:41 On examination: Heart is regular rate and rhythm, no murmur Lungs are clear to auscultation No abdominal tenderness Both legs are soft, nontender to palpation. Patient has warm lower extremities, brisk capillary refill-less than 2 seconds Pulse was difficult to palpate however with Doppler, able to hear triphasic signal bilaterally. Sensation intact to both lower extremities. No motor deficits at the hip, knee, ankle. - Medical Decision Making 09/29/17 18:42 Mr. Bernal presents emergency department with what she describes as lower extremity pain and which sounds like cramping to me Differential diagnosis includes but is not limited to: Lower extremity cramping due to restless leg syndrome versus electrolyte abnormality. Patient is very concerned about having a possible DVT. Will do: Labs including electrolytes Duplex to rule out DVT (although this is unlikely) Patient has dopplerable triphasic DPs/PTs in both lower extremities, the peripheral arterial occlusion EKG performed given patient's report of intermittent chest pain over the past 2 months which is correlated to her leg pain. EKG: Patient is a sinus rhythm, rate of 75 bpm, axis is normal, intervals are normal, ST segments in V2 appear abnormal, no reciprocal changes, normal T waves Signed out to Dr Ivy
[2017-09-29 18:42] LABS: BASO % 3.9 % (0-2.0); EOS % 1.6 % (0-4.5); HEMATOCRIT 38.1 % (32.4-45.2); HEMOGLOBIN 13.2 GM/dl (10.7-15.3); LYMPH % 25.9 % (8-40); MCH 32.7 pg (25.7-33.7); MCHC 34.6 g/dl (32.0-36.0); MEAN CELL VOLUME 94.4 fl (80-96); MEAN PLT VOLUME 8.1 fl (7.5-11.1); MONO % 11.8 % (3.8-10.2); NEUT % 56.8 % (42.8-82.8); PLATELET COUNT 234 K/MM3 (134-434); RBC 4.04 M/mm3 (3.60-5.2); RDW 12.6 % (11.6-15.6)
[2017-09-29 18:59] LABS: ALBUMIN 3.6 g/dl (3.5-5.0); ALK PHOS 86 U/L (32-92); ANION GAP 7 (8-16); BLOOD UREA NITROGEN 16 mg/dl (7-18); CALCIUM 9.1 mg/dl (8.4-10.2); CHLORIDE 99 mmol/L (98-107); CO2 30 mmol/L (22-28); GLUCOSE,RANDOM 95 mg/dl (74-106); POTASSIUM 3.5 mmol/L (3.5-5.1); SGOT/AST 30 U/L (10-42); SGPT/ALT 29 U/L (10-40); SODIUM 136 mmol/L (136-145); TOT PROT 6.9 g/dl (6.4-8.3)
[2017-09-29 19:08] LABS: BILIRUBIN,TOTAL 0.6 mg/dl (0.2-1.0)
[2017-09-29 19:16] LABS: CREATININE < 0.8 mg/dl (0.6-1.3)
[2017-09-29] MEDS ORDERED: POTASSIUM CHLORIDE ORAL LIQUID 20 MEQ/15 ML PO ONE (19:36)
[2017-09-29] MEDS ORDERED: POTASSIUM CHLORIDE ORAL LIQUID 20 MEQ/15 ML ONE (19:37)
--- NOTE | 2017-09-30 08:23 | EKG ---
Test Reason : Blood Pressure : / mmHG Vent. Rate : 075 BPM Atrial Rate : 075 BPM P-R Int : 190 ms QRS Dur : 090 ms QT Int : 426 ms P-R-T Axes : 076 053 065 degrees QTc Int : 475 ms NORMAL SINUS RHYTHM WITH SINUS ARRHYTHMIA POSSIBLE LEFT ATRIAL ENLARGEMENT BORDERLINE ECG WHEN COMPARED WITH ECG OF 24-MAR-2017 17:01, NO SIGNIFICANT CHANGE WAS FOUND Confirmed by ARTURO FOREMAN, LOTUS ([id number]) on 09/30/2017 8:22:59 AM Referred By: MD YBARRA Confirmed By:LOTUS MORRIS MD
== END 2017-09-29 19:59 | disposition home or self-care (01) ==
LOC: FER 17:40
DX: E87.6 Hypokalemia (principal); M79.604 Pain in right leg
CPT/HCPCS: 36415; 80053; 84484; 85025; 93005; 93970-TC; 99284-25

== ENCOUNTER 2018-07-30 13:45 | Emergency (ER) | payer OTHER ==
[2018-07-30 14:06] LABS: PH,URINE 7.5 (4.5-8); URINE APPEARANCE Clear; URINE BILIRUBIN Negative (NEGATIVE); URINE COLOR Yellow; URINE GLUCOSE (UA) Negative (NEGATIVE); URINE KETONE Negative (NEGATIVE); URINE LEUK ESTERASE Negative (NEGATIVE); URINE NITRITE Negative (NEGATIVE); URINE PROTEIN Negative (NEGATIVE); URINE UROBILINOGEN 0.2 (0.2-1.0)
[2018-07-30 14:14] VITALS: BMI 29.0
[2018-07-30] MEDS ORDERED: ACETAMINOPHEN 1000 MG/100 ML VIAL (NON FORMULARY) IVPB ONE (15:28)
[2018-07-30] MEDS ORDERED: SODIUM CHLORIDE 0.9% 1000 ML INFUS.BAG IV ONE (15:28)
[2018-07-30] MEDS ORDERED: ACETAMINOPHEN INJECTION 100 ML IVPB ONE (15:38)
[2018-07-30 16:07] LABS: EOS % 0.8 % (0-4.5)
[2018-07-30 16:24] LABS: ALBUMIN 3.3 g/dl (3.4-5.0); ALK PHOS 86 U/L (45-117); ANION GAP 8 MMOL/L (8-16); BILIRUBIN,TOTAL 0.5 mg/dl (0.2-1); BLOOD UREA NITROGEN 15 mg/dl (7-18); CALCIUM 9.1 mg/dl (8.5-10); CHLORIDE 100 mmol/L (98-107); CO2 30 mmol/L (21-32); CREATININE 0.6 mg/dl (0.55-1.3); GLUCOSE,RANDOM 143 mg/dl (74-106); MAGNESIUM 1.9 mg/dL (1.8-2.4); SGOT/AST 26 U/L (15-37); SGPT/ALT 25 U/L (13-61); SODIUM 138 mmol/L (136-145); TOT PROT 6.8 g/dl (6.4-8.2)
[2018-07-30 16:25] LABS: BASO % 0.3 % (0-2.0); HEMATOCRIT 37.9 % (32.4-45.2); HEMOGLOBIN 12.6 GM/dl (10.7-15.3); LYMPH % 30.1 % (8-40); MCH 32.1 pg (25.7-33.7); MCHC 33.3 g/dl (32.0-36.0); MEAN CELL VOLUME 96.4 fl (80-96); MEAN PLT VOLUME 8.4 fl (7.5-11.1); MONO % 13.3 % (3.8-10.2); NEUT % 55.5 % (42.8-82.8); PLATELET COUNT 245 K/MM3 (134-434); RBC 3.94 M/mm3 (3.60-5.2); RDW 12.3 % (11.6-15.6)
[2018-07-30] MEDS ORDERED: POTASSIUM CHLORIDE TABS 20 MEQ TABLET.ER (FP) PO ONE ×2 (17:37→17:49)
[2018-07-30] MEDS ORDERED: KCL 10 MEQ IVPB 10 MEQ/100 ML INFUS.BAG IVPB ONE ×2 (17:58→19:05)
[2018-07-30] MEDS: KCL 10 MEQ IVPB 10 MEQ/100 ML INFUS.BAG IVPB SCH ×3 (18:13→20:15)
--- NOTE | 2018-07-30 19:12 | PDOC ---
History of Present Illness - General Chief Complaint: Urinary Problem Stated Complaint: WEAK, URINARY PAIN Time Seen by Provider: 07/30/18 14:54 - History of Present Illness Initial Comments: 07/30/18 19:15 52 years old past medical history significant for hypertension on losartan and hydrochlorothiazide, high cholesterol on simvastatin with multiple visits CAD for weakness and dizziness with history of hypokalemia in the past presents to the ED with several day history of generalized weakness body aches and mild lightheadedness Symptoms are very similar to previous visits she states this feels similar to what her potassium was low. No fever no chills no chest pain or shortness of breath no recent travel. Past History - Past Medical History Allergies/Adverse Reactions: Allergies Allergy/AdvReac Type Severity Reaction Status Date / Time banana Allergy Severe RASH,THROAT Verified 07/30/18 14:08 CLOSING chloroquine Allergy "TURN RED" Verified 07/30/18 14:08 Home Medications: Ambulatory Orders Losartan/Hydrochlorothiazide [Losartan-Hctz 100-25 mg Tablet] 1 each PO DAILY Simvastatin [Zocor -] 10 mg PO DAILY 02/22/13 Potassium Chloride [K-Dur -] 10 meq PO DAILY 09/23/15 Carvedilol [Coreg] 12.5 mg PO BID 05/28/16 Anemia: No Asthma: No Cancer: No Cardiac Disorders: No CVA: No COPD: No CHF: No Dementia: No Diabetes: Yes (DIET CONTROLLED) GI Disorders: No Disorders: No HTN: Yes Hypercholesterolemia: Yes Liver Disease: No Seizures: No Thyroid Disease: No Other medical history: VERTIGO - Surgical History Abdominal Surgery: Yes (gastric sleeve) Gastric Stapling: Yes (GASTRIC SLEEVE) GI Surgery: Yes Orthopedic Surgery: Yes (LEFT CARPAL TUNNEL 2016) - Immunization History Immunization Up to Date: No - Suicide/Smoking/Psychosocial Hx Smoking Status: No Smoking History: Never smoked Have you smoked in the past 12 months: No Number of Cigarettes Smoked Daily: 0 Hx Alcohol Use: No Drug/Substance Use Hx: No Substance Use Type: None Hx Substance Use Treatment: No Review of Systems - Review of Systems Comments:: 07/30/18 19:16 ROS: A complete review of 10 out of 10 review of systems is taken and is negative apart from what is previously mentioned below and in the HPI. *Physical Exam - Vital Signs Last Vital Signs Temp Pulse Resp BP Pulse Ox 97.7 F 80 16 101/60 99 07/30/18 13:48 07/30/18 13:48 07/30/18 13:48 07/30/18 13:48 07/30/18 13:48 - Physical Exam Comments: 07/30/18 19:16 Vitals: Triage Vital signs reviewed General Appearance: no acute distress, well nourished well developed, Head: Atraumatic, Eyes: Pupils equal reactive round, extraocular movement intact Neck: Supple;No Nucal rigidity Chest Wall: Nontender Cardiac: Regular rate and rhythym, no murmurs, no rubs, no gallops, Lungs: Clear to auscultation bilateral, good air movement bilaterally, Abdomen: Soft, non distended, normal bowel sounds, non tender to palpation Extremities: Full range of motion to all extremities, no cyanosis, clubbing, or edema Skin: Warm and dry, no rashes or lesions, no rash, no petechiae Neuro: AOX3; Cranial Nerves 2-12 grossly intact, Strength intact to all extremities, Sensation intact to all extremities,gait normal Psych: normal mood, normal affect Moderate Sedation - Procedure Monitoring Vital Signs: Procedure Monitoring Vital Signs Temperature 97.7 F 07/30/18 13:48 Pulse Rate 80 07/30/18 13:48 Respiratory Rate 16 07/30/18 13:48 Blood Pressure 101/60 07/30/18 13:48 O2 Sat by Pulse Oximetry (%) 99 07/30/18 13:48 ED Treatment Course - LABORATORY CBC & Chemistry Diagram: 07/30/18 15:50 07/30/18 15:50 - ADDITIONAL ORDERS Additional order review: Laboratory Results 07/30/18 07/30/18 15:50 14:00 Sodium 138 Potassium 3.0 L Chloride 100 Carbon Dioxide 30 Anion Gap 8 BUN 15 Creatinine 0.6 Creat Clearance w eGFR > 60 Random Glucose 143 H Calcium 9.1 Magnesium 1.9 Total Bilirubin 0.5 AST 26 ALT 25 Alkaline Phosphatase 86 Total Protein 6.8 Albumin 3.3 L Urine Color Yellow Urine Appearance Clear Urine pH 7.5 Ur Specific [place] 1.015 Urine Protein Negative Urine Glucose (UA) Negative Urine Ketones Negative Urine Blood Negative Urine Nitrite Negative Urine Bilirubin Negative Urine Urobilinogen 0.2 Ur Leukocyte Esterase Negative 07/30/18 15:50 RBC 3.94 MCV 96.4 H MCHC 33.3 RDW 12.3 MPV 8.4 Neutrophils % 55.5 Lymphocytes % 30.1 Monocytes % 13.3 H Eosinophils % 0.8 Basophils % 0.3 - RADIOLOGY Radiology Studies Ordered: Category Date Time Status HEAD CT WITHOUT CONTRAST [CT] Stat CT Scan 07/30/18 15:30 Completed - Medications Given in the ED: ED Medications Discontinued Medications Generic Name Dose Route Start Last Admin Trade Name Janette PRN Reason Stop Dose Admin Acetaminophen 1,000 mg 07/30/18 15:28 07/30/18 15:55 Ofirmev Injection - IVPB 07/30/18 15:29 1,000 mg ONCE ONE Administration Potassium Chloride 60 meq 07/30/18 17:37 07/30/18 18:13 K-Dur - PO 07/30/18 17:38 60 meq ONCE ONE Administration Sodium Chloride 1,000 ml 07/30/18 15:28 07/30/18 15:50 Normal Saline - IV 07/30/18 15:29 1,000 ml ONCE ONE Administration Medical Decision Making - Medical Decision Making 07/30/18 19:17 Normal neurologic exam nation patient with history of hypokalemia presents with similar presentation complaining of diffuse bodyaches generalized weakness nonfocal exam We'll check labs hydrate observe and reassess Labs notable for potassium of 3 We'll replete recheck CK observe and reassess. *DC/Admit/Observation/Transfer Diagnosis at time of Disposition: Hypokalemia - Discharge Dispostion Disposition: HOME Condition at time of disposition: Good Decision to Admit order: No - Referrals Referrals: Joe Perry MD [Primary Care Provider] - - Patient Instructions Printed Discharge Instructions: DI for Hypokalemia Additional Instructions: Take her potassium pills as prescribed. Follow-up with your doctor tomorrow to have your blood work rechecked. Return to the ED for any severe worsening symptoms or for any concerns. - Post Discharge Activity Forms/Work/School Notes: Back to Work
--- NOTE | 2018-07-30 20:06 | PDOC ---
*Physical Exam - Vital Signs Last Vital Signs Temp Pulse Resp BP Pulse Ox 97.7 F 80 16 101/60 99 07/30/18 13:48 07/30/18 13:48 07/30/18 13:48 07/30/18 13:48 07/30/18 13:48 ED Treatment Course - LABORATORY CBC & Chemistry Diagram: 07/30/18 15:50 07/30/18 15:50 - ADDITIONAL ORDERS Additional order review: Laboratory Results 07/30/18 07/30/18 07/30/18 15:50 15:50 14:00 Sodium 138 Potassium 3.0 L Chloride 100 Carbon Dioxide 30 Anion Gap 8 BUN 15 Creatinine 0.6 Creat Clearance w eGFR > 60 Random Glucose 143 H Calcium 9.1 Magnesium 1.9 Total Bilirubin 0.5 AST 26 ALT 25 Alkaline Phosphatase 86 Creatine Kinase 199 H Creatine Kinase Index 1.1 CK-MB (CK-2) 2.3 Troponin I < 0.03 Cancelled Total Protein 6.8 Albumin 3.3 L Urine Color Yellow Urine Appearance Clear Urine pH 7.5 Ur Specific [place] 1.015 Urine Protein Negative Urine Glucose (UA) Negative Urine Ketones Negative Urine Blood Negative Urine Nitrite Negative Urine Bilirubin Negative Urine Urobilinogen 0.2 Ur Leukocyte Esterase Negative 07/30/18 15:50 RBC 3.94 MCV 96.4 H MCHC 33.3 RDW 12.3 MPV 8.4 Neutrophils % 55.5 Lymphocytes % 30.1 Monocytes % 13.3 H Eosinophils % 0.8 Basophils % 0.3 - Medications Given in the ED: ED Medications Discontinued Medications Generic Name Dose Route Start Last Admin Trade Name Freq PRN Reason Stop Dose Admin Acetaminophen 1,000 mg 07/30/18 15:28 07/30/18 15:55 Ofirmev Injection - IVPB 07/30/18 15:29 1,000 mg ONCE ONE Administration Potassium Chloride 60 meq 07/30/18 17:37 07/30/18 18:13 K-Dur - PO 07/30/18 17:38 60 meq ONCE ONE Administration Sodium Chloride 1,000 ml 07/30/18 15:28 07/30/18 15:50 Normal Saline - IV 07/30/18 15:29 1,000 ml ONCE ONE Administration Medical Decision Making - Medical Decision Making 07/30/18 21:22 Care of this patient received from . Patient received her IV potassium supplementation without complication and will be discharged to follow-up with Dr. Perry *DC/Admit/Observation/Transfer Diagnosis at time of Disposition: Hypokalemia - Discharge Dispostion Disposition: HOME Condition at time of disposition: Good - Referrals Referrals: Joe Peryr MD [Primary Care Provider] - - Patient Instructions Printed Discharge Instructions: DI for Hypokalemia Additional Instructions: Take her potassium pills as prescribed. Follow-up with your doctor tomorrow to have your blood work rechecked. Return to the ED for any severe worsening symptoms or for any concerns. - Post Discharge Activity Forms/Work/School Notes: Back to Work
[2018-07-30 20:13] VITALS: BP 108/58; PULSE 77; TEMP 98.4
--- NOTE | 2018-07-31 13:36 | EKG ---
Test Reason : Blood Pressure : / mmHG Vent. Rate : 068 BPM Atrial Rate : 068 BPM P-R Int : 180 ms QRS Dur : 090 ms QT Int : 418 ms P-R-T Axes : 075 053 056 degrees QTc Int : 444 ms POOR DATA QUALITY, INTERPRETATION MAY BE ADVERSELY AFFECTED NORMAL SINUS RHYTHM NORMAL ECG WHEN COMPARED WITH ECG OF 29-SEP-2017 18:37, NO SIGNIFICANT CHANGE WAS FOUND Confirmed by MD WILLIE, FRANCINE ([id number]) on 07/31/2018 1:36:22 PM Referred By: Confirmed By:FRANCINE TAPIA MD
== END 2018-07-30 21:40 | disposition home or self-care (01) ==
LOC: FER 13:45
PROC: 3E0337Z Introduction of Electrolytic and Water Balance Substance into Peripheral Vein, Percutaneous Approach (ICD-10-PCS; principal; 2018-07-30)
PROC: 3E033NZ Introduction of Analgesics, Hypnotics, Sedatives into Peripheral Vein, Percutaneous Approach (ICD-10-PCS; 2018-07-30)
PROC: 3E033GC Introduction of Other Therapeutic Substance into Peripheral Vein, Percutaneous Approach (ICD-10-PCS; 2018-07-30)
DX: E87.6 Hypokalemia (principal); Z98.84 Bariatric surgery status; I10 Essential (primary) hypertension; E78.00 Pure hypercholesterolemia, unspecified; R73.03 Prediabetes
CPT/HCPCS: 36415; 70450-TC; 80053; 81003; 82550; 82553; 83735; 84484; 85025; 93005; 99283-25; J0131; J7030

== ENCOUNTER 2018-11-12 09:35 | Emergency (ER) | payer OTHER ==
[2018-11-12] MEDS ORDERED: ASPIRIN 81 MG CHEWABLE TABLETS PO ONE (09:41)
--- NOTE | 2018-11-12 09:42 | PDOC ---
History of Present Illness - General Chief Complaint: Chest Pain Stated Complaint: CHEST PAIN Time Seen by Provider: 11/12/18 09:40 - History of Present Illness Initial Comments: 11/12/18 09:43 Ms. Bernal is a 53 yo female w/ pmh of HTN, HLD, diet controlled DM, and previous visits for low potassium who presents for evaluation of 2 month history of left sided intermittent chest pain. Patient reports she has been evaluated by PCP in the past for this with no outcome. Presents today as it hurts worse than normal. Denies any other associated symptoms such as shortness of breath, dizziness, or recent weight loss. The patient denies shortness of breath, headache and dizziness. Denies fever, chills, nausea, vomit, diarrhea and constipation. Denies dysuria, frequency, urgency and hematuria Past History - Past Medical History Allergies/Adverse Reactions: Allergies Allergy/AdvReac Type Severity Reaction Status Date / Time banana Allergy Severe RASH,THROAT Verified 11/12/18 09:37 CLOSING chloroquine Allergy "TURN RED" Verified 11/12/18 09:37 Home Medications: Ambulatory Orders Losartan/Hydrochlorothiazide [Losartan-Hctz 100-25 mg Tablet] 1 each PO DAILY Simvastatin [Zocor -] 10 mg PO DAILY 02/22/13 Carvedilol [Coreg] 12.5 mg PO BID 05/28/16 Potassium Chloride [K-Dur -] 10 meq PO DAILY 11/12/18 Anemia: No Asthma: No Cancer: No Cardiac Disorders: No CVA: No COPD: No CHF: No Dementia: No Diabetes: Yes (DIET CONTROLLED) GI Disorders: No Disorders: No HTN: Yes Hypercholesterolemia: Yes Liver Disease: No Seizures: No Thyroid Disease: No - Surgical History Abdominal Surgery: Yes (gastric sleeve) Gastric Stapling: Yes (GASTRIC SLEEVE) GI Surgery: Yes Orthopedic Surgery: Yes (LEFT CARPAL TUNNEL 2016) - Immunization History Immunization Up to Date: No - Suicide/Smoking/Psychosocial Hx Smoking Status: No Smoking History: Never smoked Have you smoked in the past 12 months: No Number of Cigarettes Smoked Daily: 0 Hx Alcohol Use: No Drug/Substance Use Hx: No Substance Use Type: None Hx Substance Use Treatment: No Review of Systems - Review of Systems Comments:: 11/12/18 09:44 GENERAL/CONSTITUTIONAL: No fever or chills. No weakness. HEAD, EYES, EARS, NOSE AND THROAT: No change in vision. No ear pain or discharge. No sore throat. CARDIOVASCULAR: +Chest pain as described. No shortness of breath RESPIRATORY: No cough, wheezing, or hemoptysis. GASTROINTESTINAL: No nausea, vomiting, diarrhea or constipation. GENITOURINARY: No dysuria, frequency, or change in urination. MUSCULOSKELETAL: No joint or muscle swelling or pain. No neck or back pain. SKIN: No rash NEUROLOGIC: No headache, vertigo, loss of consciousness, or change in strength/ sensation. ENDOCRINE: No increased thirst. No abnormal weight change HEMATOLOGIC/LYMPHATIC: No anemia, easy bleeding, or history of blood clots. ALLERGIC/IMMUNOLOGIC: No hives or skin allergy. *Physical Exam - Physical Exam Comments: 11/12/18 09:44 GENERAL: Awake, alert, and fully oriented, in no acute distress HEAD: No signs of trauma, normocephalic, atraumatic EYES: PERRLA, EOMI, sclera anicteric, conjunctiva clear ENT: Auricles normal inspection, hearing grossly normal, nares patent, oropharynx clear without exudates. Moist mucosa NECK: Normal ROM, supple, no lymphadenopathy, JVD, or masses LUNGS: +Reproducible L sided TTP. No distress, speaks full sentences, clear to auscultation bilaterally HEART: Regular rate and rhythm, normal S1 and S2, no murmurs, rubs or gallops, peripheral pulses normal and equal bilaterally. ABDOMEN: Soft, nontender, normoactive bowel sounds. No guarding, no rebound. No masses EXTREMITIES: Normal inspection, Normal range of motion, no edema. No clubbing or cyanosis. NEUROLOGICAL: Cranial nerves II through XII grossly intact. Normal speech, normal gait, no focal sensorimotor deficits SKIN: Warm, Dry, normal turgor, no rashes or lesions noted. ED Treatment Course - LABORATORY CBC & Chemistry Diagram: 11/12/18 09:59 11/12/18 09:59 Medical Decision Making - Medical Decision Making 11/12/18 10:56 Ms. Bernal is a 53 yo female w/ pmh as described who presents for evaluation of 2 month history of chest pain concerning for ACS vs. MSK injury vs. pulmonary process. Patient evaluated with CXR (negative), EKG (Negative), and cardiac labs as below. Labs grossly wnl. Discussed patient with cardiology (Dr. Reid) who will f/u with stress test outpatient. No concern for acute process at this time. Discharging to home. Laboratory Results - last 24 hr 11/12/18 11/12/18 11/12/18 09:59 09:59 09:59 WBC 4.3 RBC 3.80 Hgb 12.1 Hct 36.4 MCV 95.7 MCH 32.0 MCHC 33.4 RDW 12.2 Plt Count 224 MPV 8.3 Absolute Neuts (auto) 2.6 Neutrophils % 58.8 Lymphocytes % 28.8 Monocytes % 10.8 H Eosinophils % 1.1 Basophils % 0.5 Sodium 134 L Potassium 3.2 L Chloride 96 L Carbon Dioxide 28 Anion Gap 10 BUN 19.0 H Creatinine 0.8 Est GFR (CKD-EPI)AfAm 96.87 Est GFR (CKD-EPI)NonAf 83.58 Random Glucose 242 H Calcium 8.9 Total Bilirubin 0.5 AST 23 ALT 25 Alkaline Phosphatase 102 Creatine Kinase 243 H Troponin I < 0.03 Total Protein 6.4 Albumin 3.2 L *DC/Admit/Observation/Transfer Diagnosis at time of Disposition: Chest pain Qualifiers: Chest pain type: unspecified Qualified Code(s): R07.9 - Chest pain, unspecified - Discharge Dispostion Disposition: HOME Condition at time of disposition: Stable - Referrals Referrals: Joe Perry MD [Primary Care Provider] - Oswald Reid MD [Staff Physician] - - Patient Instructions Printed Discharge Instructions: DI for Chest Pain Additional Instructions: You were evaluated today in the ER for your chest pain. We performed EKG, Chest X-ray, and laboratory analysis with no concerning findings. We also discussed your case with Cardiology who will follow-up outpatient. Please call Dr. Reid at number provided to schedule an appointment for further evaluation. You may take over the counter motrin or tylenol per package instructions for pain control. Return to ER if any change in pain, fever, chills, shortness of breath , or other concerning symptoms. - Post Discharge Activity
[2018-11-12 09:58] VITALS: TEMP 98.8; BMI 27.4
--- NOTE | 2018-11-12 10:13 | PDOC ---
Attending Attestation - Resident Resident Name: Fercho Courtney - ED Attending Attestation I have performed the following: I have examined & evaluated the patient, The case was reviewed & discussed with the resident, I agree w/resident's findings & plan, Exceptions are as noted - HPI HPI: 11/12/18 10:08 53 year old female With history of hypertension, diet-controlled diabetes, hyperlipidemia, obstructive sleep apnea presents with intermittent sharp few second chest pains for 2 months. Patient reports that intermittently she would have these sharp pains and left anterior chest. Not associated shortness of breath. Patient reported yesterday that she noted that the intensity of the pain worsened but the duration was only 1-2 seconds. Patient reports that palpation of left upper chest reproduces the pain. No fevers or chills. No coughs. Patient can't remember her last stress test. - Physicial Exam PE: 11/12/18 10:13 GENERAL: Awake, alert, and fully oriented, in no acute distress HEAD: No signs of trauma EYES: EOMI, sclera anicteric, conjunctiva clear ENT: Auricles normal inspection, hearing grossly normal, nares patent, Moist mucosa NECK: Normal ROM, supple,ses LUNGS: Breath sounds equal, clear to auscultation bilaterally. No wheezes, and no crackles HEART: Regular rate and rhythm, normal S1 and S2, no murmurs, rubs or gallops. Reproducible chest pain to left upper chest. EXTREMITIES: Normal range of motion, no edema. No clubbing or cyanosis. No cords, erythema, or tenderness NEUROLOGICAL: Cranial nerves II through XII grossly intact. Normal speech, normal gait SKIN: Warm, Dry, normal turgor, no rashes or lesions noted. - Medical Decision Making 11/12/18 10:14 Vital Signs Temp Pulse Resp BP Pulse Ox 98.8 F 98 H 18 118/75 100 11/12/18 09:35 11/12/18 09:35 11/12/18 09:35 11/12/18 09:35 11/12/18 09:35 The patient's chest pressure appears to be atypical. I suspect this may potentially be muscle skeletal. However, the patient does have risks. We'll obtain a troponin, chest x-ray and labs. EKG is reassuring. If the workup is negative, the patient to follow-up with outpatient taxonomist for further management. 11/12/18 10:41 CBC, BMP 11/12/18 09:59 11/12/18 09:59 CMP Sodium 134 mmol/L (136-145) L 11/12/18 09:59 Potassium 3.2 mmol/L (3.5-5.1) L 11/12/18 09:59 Chloride 96 mmol/L (98-107) L 11/12/18 09:59 Carbon Dioxide 28 mmol/L (21-32) 11/12/18 09:59 Anion Gap 10 MMOL/L (8-16) 11/12/18 09:59 BUN 19.0 mg/dl (7-18) H 11/12/18 09:59 Creatinine 0.8 mg/dl (0.55-1.3) 11/12/18 09:59 Est GFR (CKD-EPI)AfAm 96.87 11/12/18 09:59 Est GFR (CKD-EPI)NonAf 83.58 11/12/18 09:59 Random Glucose 242 mg/dl (74-106) H 11/12/18 09:59 Calcium 8.9 mg/dl (8.5-10) 11/12/18 09:59 Total Bilirubin 0.5 mg/dl (0.2-1) 11/12/18 09:59 AST 23 U/L (15-37) 11/12/18 09:59 ALT 25 U/L (13-61) 11/12/18 09:59 Alkaline Phosphatase 102 U/L (45-117) 11/12/18 09:59 Creatine Kinase 243 U/L (26-192) H 11/12/18 09:59 Troponin I < 0.03 ng/ml (0.00-0.05) 11/12/18 09:59 Total Protein 6.4 g/dl (6.4-8.2) 11/12/18 09:59 Albumin 3.2 g/dl (3.4-5.0) L 11/12/18 09:59 Troponin is negative. Chest xray reviewed by me, pending official radiology read. No acute findings. Will consult cardiology and if agreeable to our plan, will d/c patient with outpatient followup. 11/12/18 10:55 Pt will follow up with cardiology Dr. Reid as an outpatient. Dr. Courtney had spoken with Dr. Reid regarding the details of the case. Heart Score/ECG Review #1 ECG reviewed & interpreted by me at: 09:45 11/12/18 10:17 NSR 83, no std/zahra, normal axis, normal intervals, QTC 472 msec. ECG unremarkable
[2018-11-12 10:22] LABS: BASO % 0.5 % (0-2.0); EOS % 1.1 % (0-4.5); HEMATOCRIT 36.4 % (32.4-45.2); HEMOGLOBIN 12.1 GM/dl (10.7-15.3); LYMPH % 28.8 % (8-40); MCHC 33.4 g/dl (32.0-36.0); MEAN CELL VOLUME 95.7 fl (80-96); MEAN PLT VOLUME 8.3 fl (7.5-11.1); MONO % 10.8 % (3.8-10.2); NEUT % 58.8 % (42.8-82.8); PLATELET COUNT 224 K/MM3 (134-434); RDW 12.2 % (11.6-15.6); WHITE BLOOD COUNT 4.3 K/mm3 (4.0-10.8)
[2018-11-12 10:29] LABS: ALBUMIN 3.2 g/dl (3.4-5.0); BILIRUBIN,TOTAL 0.5 mg/dl (0.2-1); CALCIUM 8.9 mg/dl (8.5-10); CREATININE 0.8 mg/dl (0.55-1.3); POTASSIUM 3.2 mmol/L (3.5-5.1); TOT PROT 6.4 g/dl (6.4-8.2)
[2018-11-12] MEDS ORDERED: ASPIRIN 81 MG CHEWABLE TABLETS ONE (10:40)
[2018-11-12 11:17] VITALS: BP 121/68; PULSE 86
--- NOTE | 2018-11-12 13:48 | EKG ---
Test Reason : Blood Pressure : / mmHG Vent. Rate : 083 BPM Atrial Rate : 083 BPM P-R Int : 186 ms QRS Dur : 098 ms QT Int : 402 ms P-R-T Axes : 070 052 052 degrees QTc Int : 472 ms NORMAL SINUS RHYTHM POSSIBLE LEFT ATRIAL ENLARGEMENT BORDERLINE ECG WHEN COMPARED WITH ECG OF 30-JUL-2018 16:11, NO SIGNIFICANT CHANGE WAS FOUND Confirmed by ESMER DOVER MD ([id number]) on 11/12/2018 1:47:56 PM Referred By: MD RECINOS Confirmed By:ESMER DOVER MD
== END 2018-11-12 11:10 | disposition home or self-care (01) ==
LOC: FER 09:35 → SUPCPDRO 09:35 → FER 11:10
DX: R07.9 Chest pain, unspecified (principal); Z98.84 Bariatric surgery status; R73.03 Prediabetes; I10 Essential (primary) hypertension; E78.00 Pure hypercholesterolemia, unspecified
CPT/HCPCS: 36415; 71046-TC-FY; 80053; 82550; 82553; 84484; 85025; 93005; 99285-25

== ENCOUNTER 2023-10-11 04:05 | Day surgery (SDC) | payer OTHER ==
[2023-10-10 09:43] VITALS: BMI 32.1
[2023-10-11 10:55] LABS: BASO % 0.3 % (0-2.0); EOS % 1.4 % (0-4.5); HEMATOCRIT 35.7 % (32.4-45.2); HEMOGLOBIN 12.2 GM/dL (10.7-15.3); MCH 32.8 pg (25.7-33.7); MCHC 34.1 g/dl (32.0-36.0); MEAN CELL VOLUME 96.3 fl (80-96); MEAN PLT VOLUME 8.3 fl (7.5-11.1); MONO % 9.1 % (3.8-10.2); NEUT % 57.2 % (42.8-82.8); PLATELET COUNT 234 10^3/uL (134-434); RBC 3.71 M/mm3 (3.60-5.2); RDW 12.6 % (11.6-15.6); WHITE BLOOD COUNT 4.7 K/mm3 (4.0-10.0)
[2023-10-11 11:02] LABS: INR 1.09 (0.83-1.09); PROTHROMBIN TIME (PATIENT) 12.3 SEC (9.7-13.0)
[2023-10-11 11:18] LABS: POTASSIUM 3.6 mmol/L (3.5-5.1)
[2023-10-11 11:19] LABS: CALCIUM 9.2 mg/dL (8.5-10.1)
[2023-10-11 11:20] LABS: BLOOD UREA NITROGEN 10.6 mg/dL (7-18)
[2023-10-11 11:23] LABS: CREATININE 0.8 mg/dL (0.55-1.3)
[2023-10-11] MEDS ORDERED: MIDAZOLAM HCL 2 MG/2 ML SINGLE DOSE VIAL ONE (12:51)
[2023-10-11] MEDS: FENTANYL CITRATE/PF 50 MCG/ML VIAL IVPUSH ONE ×2 (13:47→13:55)
[2023-10-11 14:43] VITALS: BP 140/76; PULSE 69; RESP 16; TEMP 97.8
== END 2023-10-11 16:00 | disposition home or self-care (01) ==
LOC: JRADIR 04:05
PROVIDERS: ATTEND Student in an Organized Health Care Education/Training Program
PROC: 07DR3ZZ Extraction of Iliac Bone Marrow, Percutaneous Approach (ICD-10-PCS; principal; 2023-10-11)
DX: E85.9 Amyloidosis, unspecified (principal)
CPT/HCPCS: 20225; 36415; 77012-TC; 80048; 85025; 85610; 88300-TC; 88307-TC; 88311-TC